=== PATIENT | male | born 1960 | race Caucasian/White ===

== ENCOUNTER 2017-02-09 14:40 | Outpatient (CLI) | payer OTHER ==
--- NOTE | 2017-02-09 18:55 | CT Report ---
CT CHEST WITHOUT CONTRAST FOR LUNG CANCER SCREENIN02/09/2017 CLINICAL INDICATION: A 57-year-old asymptomatic patient with 30-pack year history of smoking, quit w ithin the last 15 years, family history of lung cancer. Axial CT images of the chest were obtained without intravenous contrast, using low dose screening bethany hnique. In accordance with CT protocol optimization, one or more of the following dose reduction techniques w ere utilized for this exam: automated exposure control, adjustment of mA and/or KV based on patient size, or use of iterative reconstructive technique. No previous CT is available for comparison. The heart and great vessels demonstrate minimal atherosclerotic calcifications. Calcified left hilar lymph nodes are seen. No adenopathy is present. A calcified granuloma is present in the left upper lobe. No suspicious noncalcified pulmonary nodule or mass lesion is seen. No effusion or pneumotho rax is present. Limited evaluation of upper abdominal structures demonstrates normal adrenal glands. Osseous structures demonstrate degenerative changes. IMPRESSION: BENIGN APPEARANCE. RECOMMENDATION: CONTINUE ANNUAL SCREENING WITH LOW DOSE CT IN 12 MONTHS. LUNG RADS CATEGORY 2, BENIGN APPEARANCE. JOB #: [id number] EXT JOB #:[id number]
== END 2017-02-09 14:41 | disposition home or self-care (01) ==
LOC: DI 14:40
PROVIDERS: ATTEND Naturopath
DX: Z12.2 Encounter for screening for malignant neoplasm of respiratory organs (principal); Z87.891 Personal history of nicotine dependence; Z80.1 Family history of malignant neoplasm of trachea, bronchus and lung

== ENCOUNTER 2017-05-02 11:21 | Outpatient (CLI) | payer OTHER | END 2017-05-02 11:22 | disposition home or self-care (01) | LOC: SC 11:21 | PROVIDERS: ATTEND Internal Medicine Pulmonary Disease | DX: G47.33 Obstructive sleep apnea (adult) (pediatric) (principal) | CPT/HCPCS: 99203; 99212 ==

== ENCOUNTER 2018-10-05 10:55 | Outpatient (CLI) | payer OTHER ==
--- NOTE | 2018-10-05 15:23 | CT Report ---
Reason: HISTORY NICOTENE ABUSE Procedure Date: 10/05/2018 Accession Number: [id number] / [id number] Procedure: CT - Low Dose Lung Cancer Screen CPT Code: FULL RESULT: EXAM CT LUNG SCREEN EXAM DATE: 10/05/2018 11:29 AM. HISTORY: 58-year-old patient with [id number] smoking history. Currently smoking: No. Years since quitting: Approximately 2007. COMPARISON: CHEST SCREEN LOW DOSE W/O 02/09/2017 2:51 PM. TECHNIQUE: CT examination of the entire thorax without contrast was performed using low-dose technique. Thin section coronal, axial, sagittal and MIP axial images were obtained. In accordance with CT protocol optimization, one or more of the following dose reduction techniques were utilized for this exam: automated exposure control, adjustment of mA and/or KV based on patient size, or use of iterative reconstructive technique. FINDINGS: Nodules: Right upper lobe: 4 mm nodule image 106 series 4. 3 mm nodule image 51. Right middle lobe: None. Right lower lobe: 4 mm triangular perifissural nodule image 76. Left upper lobe: Calcified 6 mm nodule on image 52, benign. Left lower lobe: 5 mm nodule image 105. Emphysema: None. Pleura: Unremarkable. Aorta: Unremarkable. Mediastinum: Calcified left hilar lymph node. No mediastinal or hilar lymphadenopathy. Normal cardiac size. Coronary calcifications: Minimal. Other pulmonary findings: None. Other extrapulmonary findings: None. IMPRESSION: Lung-RADS ASSESSMENT CATEGORY: 2 - benign findings. Probability of malignancy: Less than 1%. RECOMMENDATION: Annual low-dose screening CT of the chest as per lung RADS guidelines. RADIA
== END 2018-10-05 10:56 | disposition home or self-care (01) ==
LOC: DI 10:55
PROVIDERS: ATTEND Naturopath
DX: Z12.2 Encounter for screening for malignant neoplasm of respiratory organs (principal); Z87.891 Personal history of nicotine dependence

== ENCOUNTER 2019-04-30 08:20 | Outpatient (CLI) | payer OTHER ==
[2019-04-30 10:42] LABS: BASOPHILS % (AUTO) 0.3 %; EOSINOPHILS # (AUTO) 0.2 10^3/uL (0.0-0.7); EOSINOPHILS % (AUTO) 2.4 %; HGB - HEMOGLOBIN 14.4 g/dL (14.0-18.0); LYMPHOCYTES # (AUTO) 1.2 10^3/uL (1.5-3.5); MEAN CORPUSCULAR HEMOGLOBIN 30.6 pg (27.0-31.0); MEAN CORPUSCULAR HGB CONC 33.7 g/dL (32.0-36.0); MEAN CORPUSCULAR VOLUME 90.7 fL (80.0-94.0); MONOCYTES # (AUTO) 0.4 10^3/uL (0.0-1.0); MONOCYTES % (AUTO) 6.7 %; NEUTROPHILS # (AUTO) 4.6 10^3/uL (1.5-6.6); NEUTROPHILS % (AUTO) 72.3 %; PLT - PLATELET COUNT 287 10^3/uL (130-450); RED BLOOD COUNT 4.71 10^6/uL (4.70-6.10); RED CELL DISTRIBUTION WIDTH 12.6 % (12.0-15.0); WHITE BLOOD COUNT 6.4 x10^3/uL (4.8-10.8)
[2019-04-30 11:17] LABS: ALBUMIN 4.4 g/dL (3.2-5.5); ALBUMIN/GLOBULIN RATIO 1.5 (1.0-2.2); ALKALINE PHOSPHATASE 37 IU/L (42-121); ALT ALANINE AMINOTRANSFERASE 32 IU/L (10-60); AST ASPARTATE AMINOTRANSFERASE 19 IU/L (10-42); BILIRUBIN,TOTAL 0.6 mg/dL (0.2-1.0); BUN - BLOOD UREA NITROGEN 17 mg/dL (6-20); CALCIUM 9.5 mg/dL (8.5-10.3); CARBON DIOXIDE - CO2 28 mmol/L (21-32); CHLORIDE 102 mmol/L (101-111); CHOLESTEROL 128 mg/dL; CREATININE 0.8 mg/dL (0.6-1.2); GFR - MDRD 99 (>89); GLUCOSE 116 mg/dL (70-100); HDL CHOLESTEROL 64 mg/dL; LDL CHOLESTEROL,CALCULATED 53 mg/dL; LDL/HDL RATIO 0.8 (<3.6); SODIUM 138 mmol/L (135-145); TOTAL PROTEIN 7.4 g/dL (6.7-8.2); VLDL CHOLESTEROL 11 mg/dL
[2019-04-30 11:33] LABS: THYROID STIMULATING HORMONE 1.41 uIU/mL (0.34-5.60)
[2019-04-30 11:35] LABS: FREE T4 (FREE THYROXINE) 0.75 ng/dL (0.58-1.64)
[2019-04-30 12:06] LABS: HB2 TOTAL 13.7 g/dL; HEMOGLOBIN A1C 0.53 g/dL; HEMOGLOBIN A1C % 5.7 % (4.6-6.2)
== END 2019-04-30 08:21 | disposition home or self-care (01) ==
LOC: LAB.S 08:20
PROVIDERS: ATTEND Naturopath
DX: E11.9 Type 2 diabetes mellitus without complications (principal); E78.2 Mixed hyperlipidemia; R94.5 Abnormal results of liver function studies; R63.5 Abnormal weight gain
CPT/HCPCS: 36415; 80053; 80061; 83036; 83090; 83721; 84439; 84443; 84481; 85025

== ENCOUNTER 2020-10-27 13:19 | Emergency (ER) | payer OTHER ==
--- NOTE | 2020-10-27 14:00 | ED Physician Documentation ---
PD HPI FOCAL NEURO - Stated complaint Stated Complaint: DIZZY - Chief complaint Chief Complaint: Neuro - History obtained from History obtained from: Patient - Additional information Additional information: 60-year-old gentleman with history of type 2 diabetes and hyperlipidemia developed spinning vertigo this morning. 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 Is associated with mild nausea. He had a similar episode after particular hard day at work about 6 months ago where he was quite fatigued, he just slept it off at that time. There is no associated diplopia, weakness, numbness, tingling, headaches. This kind of comes and goes and is especially bad when he turns his head. He is not currently dizzy on my evaluation. Review of Systems Ten Systems: 10 systems reviewed and negative Constitutional: denies: Fever, Chills Ears: denies: Loss of hearing, Ear pain, Drainage/discharge Nose: denies: Rhinorrhea / runny nose, Congestion PD PAST MEDICAL HISTORY - Past Medical History Past Medical History: Yes Cardiovascular: High cholesterol Endocrine/Autoimmune: Type 2 diabetes - Past Surgical History Past Surgical History: Yes HEENT: Tonsil/Adenoidectomy - Present Medications Home Medications: Ambulatory Orders Medication Instructions Recorded Confirmed Meclizine HCl [Antivert] 1 tablet PO Q6H PRN #30 tab 10/27/20 Metformin HCl [Glucophage] 1,000 mg PO QPM 10/27/20 10/27/20 Simvastatin [Zocor] 10 mg PO DAILY 10/27/20 10/27/20 metFORMIN [Glucophage] 500 mg PO DAILY 10/27/20 10/27/20 - Allergies Allergies/Adverse Reactions: Allergies Allergy/AdvReac Type Severity Reaction Status Date / Time No Known Drug Allergies Allergy Verified 10/27/20 13:21 - Social History Does the pt smoke?: No Smoking Status: Never smoker Does the pt drink ETOH?: Yes Does the pt have substance abuse?: No - Immunizations Immunizations are current?: Yes PD ED PE NORMAL - Vitals Vital signs reviewed: Yes - General General: Alert and oriented X 3, No acute distress - HEENT HEENT: PERRL, EOMI, Pharynx benign - Neck Neck: Supple, no meningeal sign, No bony TTP - Cardiac Cardiac: RRR, No murmur - Respiratory Respiratory: No respiratory distress, Clear bilaterally - Abdomen Abdomen: Non tender - Derm Derm: Normal color, Warm and dry - Neuro Neuro: Alert and oriented X 3, 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 Positive William- Hallpike.) Results - Vitals Vitals: Vital Signs - 24 hr 10/27/20 10/27/20 13:24 13:50 Temperature 36.3 C L 36.3 C L Heart Rate 69 69 Respiratory 19 19 Rate Blood Pressure 153/90 H 153/90 H O2 Saturation 97 97 Oxygen O2 Source Room air - EKG (time done) 1332 Rate: Rate (enter#) (69) Rhythm: NSR [place]: Normal Intervals: Normal [place] QRS: Normal Ischemia: Normal ST segments Computer interpretation: Agree with computer - Labs Labs: Laboratory Tests 10/27/20 10/27/20 10/27/20 13:28 14:00 14:00 WBC 6.6 RBC 4.77 Hgb 14.6 Hct 42.4 MCV 88.9 MCH 30.6 MCHC 34.4 RDW 12.9 Plt Count 255 MPV 9.7 Neut # (Auto) 4.4 Lymph # (Auto) 1.6 Winston # (Auto) 0.4 Eos # (Auto) 0.1 Baso # (Auto) 0.0 Absolute Nucleated RBC 0.00 Nucleated RBC % 0.0 Sodium 137 Potassium 3.9 Chloride 101 Carbon Dioxide 25 Anion Gap 11.0 BUN 21 H Creatinine 0.8 Estimated GFR (MDRD) 99 Glucose 127 H POC Whole Bld Glucose 134 H Calcium 10.0 Magnesium 2.2 Total Bilirubin 0.4 AST 22 ALT 35 Alkaline Phosphatase 41 L Troponin I High Sens Total Protein 7.6 Albumin 4.8 Globulin 2.8 Albumin/Globulin Ratio 1.7 10/27/20 14:00 WBC RBC Hgb Hct MCV MCH MCHC RDW Plt Count MPV Neut # (Auto) Lymph # (Auto) Winston # (Auto) Eos # (Auto) Baso # (Auto) Absolute Nucleated RBC Nucleated RBC % Sodium Potassium Chloride Carbon Dioxide Anion Gap BUN Creatinine Estimated GFR (MDRD) Glucose POC Whole Bld Glucose Calcium Magnesium Total Bilirubin AST ALT Alkaline Phosphatase Troponin I High Sens 3.4 Total Protein Albumin Globulin Albumin/Globulin Ratio - Rads (name of study) CT Head Radiology: EMP read contemporaneously (NAD) PD MEDICAL DECISION MAKING - ED course ED course: 60-year-old gentleman with well-controlled diabetes presents with what sounds like peripheral vertigo. The intermittent waxing and waning nature in association with head movements as well as normal neurologic exam and normal head CT would suggest against a central process. He declined Dramamine here but would like a prescription. Departure - Departure Disposition: Home, Self Care Clinical Impression: Vertigo Condition: Good Record reviewed to determine appropriate education?: Yes Instructions: ED Vertigo Unspecified Prescriptions: Meclizine HCl [Antivert] 1 tablet PO Q6H PRN #30 tab PRN Reason: Vertigo Comments: You are seen today for dizziness which sounds like vertigo. The history, physical examination, and work-up suggest that this is a benign process. Return if worsening or if new symptoms develop. Follow-up with your primary care physician. Forms: Activity restrictions
[2020-10-27 14:29] LABS: BASOPHILS % (AUTO) 0.5 %; EOSINOPHILS # (AUTO) 0.1 10^3/uL (0.0-0.7); EOSINOPHILS % (AUTO) 1.4 %; HCT - HEMATOCRIT 42.4 % (42.0-52.0); HGB - HEMOGLOBIN 14.6 g/dL (14.0-18.0); LYMPHOCYTES # (AUTO) 1.6 10^3/uL (1.5-3.5); LYMPHOCYTES % (AUTO) 24.8 %; MEAN CORPUSCULAR HEMOGLOBIN 30.6 pg (27.0-31.0); MEAN CORPUSCULAR HGB CONC 34.4 g/dL (32.0-36.0); MEAN CORPUSCULAR VOLUME 88.9 fL (80.0-94.0); MEAN PLATELET VOLUME 9.7 fL (7.4-11.4); MONOCYTES # (AUTO) 0.4 10^3/uL (0.0-1.0); MONOCYTES % (AUTO) 6.1 %; NEUTROPHILS # (AUTO) 4.4 10^3/uL (1.5-6.6); NEUTROPHILS % (AUTO) 66.9 %; PLT - PLATELET COUNT 255 10^3/uL (130-450); RED BLOOD COUNT 4.77 10^6/uL (4.70-6.10); RED CELL DISTRIBUTION WIDTH 12.9 % (12.0-15.0); WHITE BLOOD COUNT 6.6 x10^3/uL (4.8-10.8)
[2020-10-27 14:30] LABS: ALBUMIN 4.8 g/dL (3.2-5.5); ALBUMIN/GLOBULIN RATIO 1.7 (1.0-2.2); BILIRUBIN,TOTAL 0.4 mg/dL (0.2-1.0); CREATININE 0.8 mg/dL (0.6-1.2); MAGNESIUM 2.2 mg/dL (1.7-2.8); POTASSIUM 3.9 mmol/L (3.5-5.0); TOTAL PROTEIN 7.6 g/dL (6.7-8.2)
--- NOTE | 2020-10-27 14:33 | CT Report ---
PROCEDURE: HEAD WO INDICATIONS: vertigo TECHNIQUE: Noncontrast 4.5 mm thick angled axial sections acquired from the foramen magnum to the vertex. For r adiation dose reduction, the following was used: automated exposure control, adjustment of mA and/or kV according to patient size. COMPARISON: None. FINDINGS: Image quality: Excellent. CSF spaces: Basal cisterns are patent. No extra-axial fluid collections. Ventricles are normal in size and shape. Brain: No midline shift. No intracranial masses or hemorrhage. Burr-white matter interface is norm al. Skull and face: Calvarium and visualized facial bones are intact, without suspicious lesions. Sinuses: Visualized sinuses and mastoids are clear. IMPRESSION: 1. No acute intracranial process. Reviewed by: Kavitha Valle MD on 10/27/2020 2:32 PM PDT Approved by: Kavitha Valle MD on 10/27/2020 2:32 PM PDT Station ID: [id number]
[2020-10-27 14:58] VITALS: BP 124/84
== END 2020-10-27 15:01 | disposition home or self-care (01) ==
LOC: ED 13:19
DX: R42 Dizziness and giddiness (principal); R11.0 Nausea; E11.9 Type 2 diabetes mellitus without complications; Z79.84 Long term (current) use of oral hypoglycemic drugs; E78.5 Hyperlipidemia, unspecified
CPT/HCPCS: 36415; 80053; 81599; 83735; 84484; 85025; 93005; 99284

== ENCOUNTER 2021-10-30 20:50 | Outpatient (CLI) | payer OTHER ==
--- NOTE | 2021-10-30 23:00 | Ultrasound Report ---
PROCEDURE: Duplex Ext Veins Left INDICATIONS: PAIN AND SWELLING LEFT KNEE TECHNIQUE: Real-time imaging, as well as color and pulse Doppler interrogation, were performed of the lower extr emity deep veins from the inguinal ligament to the popliteal fossa. COMPARISON: None. FINDINGS: The deep veins are normally compressible, and free of intraluminal thrombus. Color and pu lse Doppler demonstrate normal phasic intraluminal flow. There is normal augmentation response to di stal compression maneuver. There is a small fluid collection in the left posterior fossa suggestive of a small Gipson's cyst. IMPRESSION: 1. No evidence of deep venous thrombosis in the left lower extremity. Reviewed by: Gilbert Chairez MD on 10/30/2021 10:59 PM PDT Approved by: Gilbert Chairez MD on 10/30/2021 10:59 PM PDT Station ID: [id number]
== END 2021-10-30 20:51 | disposition home or self-care (01) ==
LOC: DI 20:50
PROVIDERS: ATTEND Naturopath
DX: M25.562 Pain in left knee (principal); M25.462 Effusion, left knee

== ENCOUNTER 2021-12-24 07:25 | Outpatient (CLI) | payer OTHER ==
--- NOTE | 2021-12-24 15:20 | CT Report ---
PROCEDURE: Low Dose Lung Cancer Screen INDICATIONS: FORMER SMOKER TECHNIQUE: Noncontrast low-dose images were acquired from the pulmonary apices to the posterior costophrenic ang les. Multiplanar MIP reformats were then acquired. For radiation dose reduction, the following was used: automated exposure control, adjustment of mA and/or kV according to patient size. COMPARISON: CT chest 02/09/2017 FINDINGS: Image quality: Excellent. Lungs and pleura: 5 mm lateral left lower lobe nodule series 4 image 202 was present on prior exam a nd measured 4 mm. Calcified nodules noted in the left upper lobe on series 4 image 92, unchanged. Unc hanged 3 mm nodule is noted in the inferior aspect of the left lower lobe on series 4 image 221, unch anged. Mediastinum: Heart size is normal. No pericardial effusion. No mediastinal adenopathy by size crit eria. Thoracic aorta and central pulmonary arteries are normal in size. Esophagus is normal in chitra sarah. No hiatal hernia. Bones and chest wall: No suspicious bony lesions. No vertebral body compression fractures. No axil abhijit or supraclavicular adenopathy by size criteria. The thyroid is normal in size and there are no incidental findings. Abdomen: Visualized upper abdomen solid organs and bowel loops appear normal in the absence of contr ast. IMPRESSION: Bilateral pulmonary nodules, with stable versus minimal interval change compared to prior exam. Lung rads category [address] screening[address] CLINICAL RECOMMENDATION STATEMENTS: In patients <35 years with an ITN detected on CT, MRI, or extrathyroidal ultrasound, the Committee re commends further evaluation with dedicated thyroid ultrasound if the nodule is "e1 cm and has no susp icious imaging features, and if the patient has normal life expectancy. In patients "e35 years with an ITN detected on CT, MRI, or extrathyroidal ultrasound, the Committee r ecommends further evaluation with dedicated thyroid ultrasound if the nodule is "e1.5 cm and has no s uspicious imaging features, and if the patient has normal life expectancy. (ACR, 2014) Reviewed by: Kavitha Valle MD on 12/24/2021 3:19 PM PDT Approved by: Kavitha Valle MD on 12/24/2021 3:19 PM PDT Station ID: [id number]
== END 2021-12-24 07:26 | disposition home or self-care (01) ==
LOC: DI 07:25
PROVIDERS: ATTEND Naturopath
DX: Z12.2 Encounter for screening for malignant neoplasm of respiratory organs (principal); R91.8 Other nonspecific abnormal finding of lung field; Z87.891 Personal history of nicotine dependence

== ENCOUNTER 2022-10-21 12:47 | Outpatient (CLI) | payer OTHER ==
--- NOTE | 2022-10-21 13:59 | XRAY Report ---
PROCEDURE: Chest 2 View X-Ray INDICATIONS: SHORTNESS OF BREATH TECHNIQUE: 2 views of the chest were acquired. COMPARISON: None. FINDINGS: Surgical changes and devices: None. Lungs and pleura: No pleural effusions or pneumothorax. Lungs are clear. Mediastinum: Mediastinal contours are normal. Heart size is normal. Bones and chest wall: No suspicious bony abnormalities. Soft tissues appear unremarkable. IMPRESSION: No acute cardiopulmonary process. Reviewed by: Jhonatan Wilson on 10/21/2022 1:57 PM PDT Approved by: Jhonatan Wilson on 10/21/2022 1:57 PM PDT Station ID: [id number]
== END 2022-10-21 12:48 | disposition home or self-care (01) ==
LOC: DI 12:47
PROVIDERS: ATTEND Naturopath
DX: R06.02 Shortness of breath (principal)

== ENCOUNTER 2023-05-04 06:24 | Day surgery (SDC) | payer OTHER ==
[2023-05-04] MEDS ORDERED: LACTATED RINGERS 1,000 ML IV ONE ×2 (06:28→08:28)
[2023-05-04] MEDS ORDERED: MIDAZOLAM 2 MG/2 ML VIAL ONE (07:07)
[2023-05-04] MEDS ORDERED: PROPOFOL 500 MG/50 ML 500 MG/50 ML VIAL ONE (07:08)
--- NOTE | 2023-05-04 07:24 | ANESTHESIA ---
Pre-Anesthesia VS, & Labs - Diagnosis screening - Procedure colonoscopy Vital Signs: Temp Pulse Resp BP Pulse Ox O2 Flow Rate 36.8 C 69 12 140/88 H 96 05/04/23 06:28 05/04/23 06:28 05/04/23 06:28 05/04/23 06:28 05/04/23 06:28 Height: 6 ft 1 in Weight (kg): 84.4 kg Body Mass Index: 24.5 BMI Classification: Normal - NPO >8 hours - Lab Results Current Lab Results: Laboratory Tests 05/04/23 06:43: POC Whole Bld Glucose 153 H Lab results reviewed: Yes Home Medications and Allergies Metformin HCl [Glucophage] 1,000 mg PO QPM 10/27/20 Simvastatin [Zocor] 10 mg PO DAILY 10/27/20 metFORMIN [Glucophage] 500 mg PO DAILY 10/27/20 Allergies/Adverse Reactions: Allergies Allergy/AdvReac Type Severity Reaction Status Date / Time No Known Drug Allergies Allergy Verified 10/27/20 13:21 Anes History & Medical History - Anesthetic History Anesthesia Complications: reports: No previous complications Family history of Anesthesia Complications: Denies Family history of Malignant Hyperthermia: Denies - Medical History Cardiovascular: reports: None, High cholesterol Pulmonary: reports: Sleep apnea Gastrointestinal: reports: None Urinary: reports: None Musculoskeletal: reports: None Endocrine/Autoimmune: reports: Type 2 diabetes Skin: reports: None Smoking Status: Never smoker - Surgical History General: reports: Colonoscopy Eyes Ears Nose Throat (EENT): reports: Tonsil/Adenoidectomy Exam General: Alert, Oriented x3, Cooperative Dental: WNL Mouth Openin Fingerbreadth Neck Mobility: Normal Mallampati classification: II Thyromental Distance: 4-6 cm Respiratory: Lungs clear, Normal breath sounds, No respiratory distress Cardiovascular: Regular rate Neurological: Normal speech Mental/Cognitive Status: Alert/Oriented X3, Normal for patient Cognitive Status: Within normal limits Plan Anesthesia Type: General Consent for Procedure(s) Verified and Reviewed: Yes Code Status: Attempt Resuscitation ASA classification: 2-Mild systemic disease Is this case an emergency?: No
--- NOTE | 2023-05-04 08:47 | ANESTHESIA POST OP EVALUATION ---
Anesthesia Post Eval - Post Anesthesia Eval Vitals: Last Vital Signs Temp 36.6 C 05/04/23 08:29 Pulse 77 05/04/23 08:29 Resp 16 05/04/23 08:29 BP 102/55 L 05/04/23 08:29 Pulse Ox 97 05/04/23 08:29 O2 Flow Rate CV Function Including HR & BP: Stable Pain Control: Satisfactory Nausea & Vomiting: Negative Mental Status: Baseline Respiratory Status: Airway Patent Hydration Status: Satisfactory Anesthesia Complications: None
[2023-05-04 08:50] VITALS: BP 1088/74; O2SAT 99
== END 2023-05-04 06:25 | disposition home or self-care (01) ==
LOC: SDS 06:24
PROVIDERS: ATTEND Surgery
DX: Z12.11 Encounter for screening for malignant neoplasm of colon (principal); K57.30 Diverticulosis of large intestine without perforation or abscess without bleeding; K64.1 Second degree hemorrhoids; E11.9 Type 2 diabetes mellitus without complications; Z79.84 Long term (current) use of oral hypoglycemic drugs; Z86.010 Personal history of colon polyps; Z87.891 Personal history of nicotine dependence
CPT/HCPCS: 45378; J7120